=== PATIENT | female | born 1975 | race Caucasian/White ===

== ENCOUNTER 2021-06-08 14:36 | Emergency (ER) | payer OTHER, MEDICAID, SELFPAY ==
[2021-06-08 14:45] VITALS: BP 140/81; PULSE 97; RESP 22; TEMP 36.2; O2SAT 99
[2021-06-08 15:11] LABS: Add Manual Diff / Slide Review NO; Basophils Absolute Auto 0 /uL (0-100); Basophils Percent Auto 0.4 % (0-2); Eosinophils Absolute Auto 0 /uL (0-450); Eosinophils Percent Auto 0.4 % (2-4); Hematocrit 36.3 % (36-46); Hemoglobin 12.4 g/dL (12.0-16.0); Lymphocytes Absolute Auto 1100 /uL (1100-4500); Lymphocytes Percent Auto 16.4 % (25-40); Mean Corpuscular HGB Conc 34.1 % (30-36); Mean Corpuscular Hemoglobin 29.8 PG (26-34); Mean Corpuscular Volume 87.6 fL (80-100); Monocytes Absolute Auto 400 /uL (0-900); Monocytes Percent Auto 5.4 % (3-14); Neutrophils Absolute Auto 5300 /uL (1500-7000); Neutrophils Percent Auto 77.4 % (50-75); Platelet Count 271 X10^3/uL (150-400); Red Blood Cell Count 4.14 X10^6/uL (4.0-5.2); Red Cell Distribution Width 13.6 % (11.6-14.8); White Blood Cell Count 6.8 X10^3/uL (4.5-11.0)
[2021-06-08 15:20] LABS: Alanine Aminotransferase 22 IU/L (<35); Albumin 4.1 g/dL (3.5-5.0); Alkaline Phosphatase 100 U/L (38-126); Aspartate Aminotransferase 38 IU/L (14-36); BUN Creatinine Ratio 18.2 (6-22); Bilirubin Total 0.5 mg/dL (0.2-1.3); Blood Urea Nitrogen 12 mg/dL (7-17); Calcium 8.8 mg/dL (8.4-10.2); Carbon Dioxide 26 mmol/L (22-32); Chloride 104 mmol/L (98-107); Estimated Glomerular Filt Rate > 60.0 mL/min (>60); Globulin 4.1 g/dL (1.7-4.1); Glucose 100 mg/dL (70-100); HEMOLYSIS < 15 (0-50); Lipase 49 U/L (23-300); Potassium 3.6 mmol/L (3.4-5.1); Sodium 138 mmol/L (137-145); Total Protein 8.2 g/dL (6.3-8.2)
--- NOTE | 2021-06-08 17:36 | ED.ABDPAIN ---
HPI - Abdominal Pain General Chief Complaint: Abdominal Pain Stated Complaint: stabbing pain in stomach, hurts to breathe Time Seen by Provider: 06/08/21 17:12 Source: patient Mode of arrival: Ambulatory Limitations: no limitations History of Present Illness HPI narrative: This is a 46-year-old female comes in with complaint of abdominal in her right upper quadrant. Patient states it started earlier today. Patient denies fevers or chills no nausea or vomiting. She denies any back or flank pain. She did notice some dark urine earlier. She states no vaginal bleeding. No new discharge. No diarrhea constipation. Patient has not had similar symptoms in the past. She states that she was planting trees with another individual when her symptoms started. Movement does not seem to worsen her symptoms but flexing her body forward makes it more comfortable. Patient denies any medical issues. No prior surgeries. She has had an IUD in place for approximately 6 years. No known drug allergies she is a former smoker. Occasional alcohol. States that she did use some drugs recreationally last weekend but that does not her normal this includes methamphetamines and smoking heroin. Related Data Previous Rx's Medication Instructions Recorded cephalexin 500 mg capsule 500 mg PO BID 7 Days #14 cap 06/08/21 fluconazole 150 mg tablet 150 mg PO Q3D #2 tab 06/08/21 (Diflucan) Allergies Allergy/AdvReac Type Severity Reaction Status Date / Time No Known Drug Allergies Allergy Verified 06/08/21 14:48 Review of Systems Review of Systems ROS Unobtainable: All systems reviewed & are unremarkable except as noted in HPI and below Patient History Social History Smoking Status: Former smoker Smoking Status: Former smoker Exam Narrative Exam Narrative: GENERAL: Alert and oriented x three, mild distress. HEENT: Head normocephalic, atraumatic, EOMI, pupils reactive, face symmetric, moist mucous membranes NECK: Supple, full range of motion CARDIOVASCULAR: Regular rate and rhythm without murmurs, rubs or gallops. RESPIRATORY: Breath sounds equal bilaterally, no wheezes rales or rhonchi. ABDOMEN: Soft, moderate right upper and lower quadrant tenderness with some mild left lower quadrant tenderness. Normal bowel sounds all 4 quadrants. No guarding or rebound, rigidity, no mass : No CVA tenderness EXTREMITIES: Normal range of motion, no clubbing or edema. Neurovascularly intact NEUROLOGICAL: Cranial nerves II through XII grossly intact. Moving all extremities SKIN: Warm, dry, no petechiae, no rashes or lesions. Initial Vital Signs Initial Vital Signs: Vital Signs Temperature 97.2 F L 06/08/21 14:45 Pulse Rate 97 H 06/08/21 14:45 Respiratory Rate 22 06/08/21 14:45 Blood Pressure 140/81 06/08/21 14:45 Pulse Oximetry 99 06/08/21 14:45 Course Orders Ordered: Discontinued Medications Cephalexin HCl (Cephalexin 250 Mg Capsule) 500 mg PO NOW ONE Stop: 06/08/21 19:19 Last Admin: 06/08/21 19:23 Dose: 500 mg Documented by: CARMEN Sodium Chloride (Normal Saline 0.9%) 1,000 mls @ 1,000 mls/hr IV BOLUS ONE Stop: 06/08/21 18:44 Last Infusion: 06/08/21 19:21 Dose: 0 mls/hr Documented by: Admin: 06/08/21 17:59 Dose: 1,000 mls/hr Documented by: ELIEZER Ketorolac Tromethamine (Ketorolac 30 Mg/Ml Vial) 30 mg IV NOW ONE Stop: 06/08/21 17:46 Last Admin: 06/08/21 17:58 Dose: 30 mg Documented by: ELIEZER Reevaluation(s) Reevaluation #1: Patient has had some improvement. Reviewed findings and need for follow up. Vital Signs Vital signs: Vital Signs - 8 hr 06/08/21 14:45 06/08/21 18:36 Temperature 97.2 F L Pulse Rate 97 H 80 Respiratory Rate 22 Blood Pressure 140/81 138/88 Pulse Oximetry 99 99 MDM - Abdominal Pain Lab Data Result diagrams: 06/08/21 14:55 06/08/21 14:55 Labs: Lab Results 06/08/21 06/08/21 06/08/21 Range/Units 14:55 14:55 14:55 WBC 6.8 (4.5-11.0) X10^3/uL RBC 4.14 (4.0-5.2) X10^6/uL Hgb 12.4 (12.0-16.0) g/dL Hct 36.3 (36-46) % MCV 87.6 (80-100) fL MCH 29.8 (26-34) PG MCHC 34.1 (30-36) % RDW 13.6 (11.6-14.8) % Plt Count 271 (150-400) X10^3/uL Neut % (Auto) 77.4 H (50-75) % Lymph % (Auto) 16.4 L (25-40) % [place] % (Auto) 5.4 (3-14) % Eos % (Auto) 0.4 L (2-4) % Baso % (Auto) 0.4 (0-2) % Neut # (Auto) 5300 (6594-6532) /uL Lymph # (Auto) 1100 (2861-4131) /uL [place] # (Auto) 400 (0-900) /uL Eos # (Auto) 0 (0-450) /uL Baso # (Auto) 0 (0-100) /uL Sodium 138 (137-145) mmol/L Potassium 3.6 (3.4-5.1) mmol/L Chloride 104 (98-107) mmol/L Carbon Dioxide 26 (22-32) mmol/L BUN 12 (7-17) mg/dL Creatinine 0.66 (0.52-1.04) mg/dL Estimated GFR > 60.0 (>60) mL/min BUN/Creatinine Ratio 18.2 (6-22) Glucose 100 (70-100) mg/dL Calcium 8.8 (8.4-10.2) mg/dL Total Bilirubin 0.5 (0.2-1.3) mg/dL AST 38 H (14-36) IU/L ALT 22 (<35) IU/L Alkaline Phosphatase 100 (38-126) U/L Total Protein 8.2 (6.3-8.2) g/dL Albumin 4.1 (3.5-5.0) g/dL Globulin 4.1 (1.7-4.1) g/dL Albumin/Globulin Ratio 1.0 (1.0-2.8) Lipase 49 (23-300) U/L Serum , Qual Negative (Negative) Urine RBC (0-5/HPF) Urine WBC (0-5/HPF) Ur Squamous Epith Cells (0-5/HPF) Amorphous Sediment Urine Bacteria (None) Ur Culture Indicated? 06/08/21 Range/Units 19:00 WBC (4.5-11.0) X10^3/uL RBC (4.0-5.2) X10^6/uL Hgb (12.0-16.0) g/dL Hct (36-46) % MCV (80-100) fL MCH (26-34) PG MCHC (30-36) % RDW (11.6-14.8) % Plt Count (150-400) X10^3/uL Neut % (Auto) (50-75) % Lymph % (Auto) (25-40) % [place] % (Auto) (3-14) % Eos % (Auto) (2-4) % Baso % (Auto) (0-2) % Neut # (Auto) (3398-4793) /uL Lymph # (Auto) (3865-5471) /uL [place] # (Auto) (0-900) /uL Eos # (Auto) (0-450) /uL Baso # (Auto) (0-100) /uL Sodium (137-145) mmol/L Potassium (3.4-5.1) mmol/L Chloride (98-107) mmol/L Carbon Dioxide (22-32) mmol/L BUN (7-17) mg/dL Creatinine (0.52-1.04) mg/dL Estimated GFR (>60) mL/min BUN/Creatinine Ratio (6-22) Glucose (70-100) mg/dL Calcium (8.4-10.2) mg/dL Total Bilirubin (0.2-1.3) mg/dL AST (14-36) IU/L ALT (<35) IU/L Alkaline Phosphatase (38-126) U/L Total Protein (6.3-8.2) g/dL Albumin (3.5-5.0) g/dL Globulin (1.7-4.1) g/dL Albumin/Globulin Ratio (1.0-2.8) Lipase (23-300) U/L Serum , Qual (Negative) Urine RBC 1-5/hpf (0-5/HPF) Urine WBC 5-10/hpf H (0-5/HPF) Ur Squamous Epith Cells 1-5 /hpf (0-5/HPF) Amorphous Sediment 1+ Urine Bacteria Moderate (10-30) H (None) Ur Culture Indicated? Culture not indicate Point of care testing: Point of Care Testing Test Results Negative Urine Dip Bedside Urine Glucose Negative Bedside Urine Bilirubin - Negative Bedside Urine Ketone +++ 80 Urine Specific [place] 1.015 Bedside Urine Occult Blood + Bedside Urine pH 6 Bedside Urine Protein +/- 15 Bedside Urine Urobilinogen - Negative Bedside Urine Nitrite + Positive Bedside Urine Leukocytes + [address] scan - abdomen/pelvis: Radiologist's Impression: [place] [address] CT Scan Report Signed Patient: Marimar Thornton MR#: [id number] : 1975 Acct:[id number] Age/Sex: 46 / F Date of Service: 06/08/21 Loc: ED Accession Number: [id number] ?? Procedure: CT abdomen pelvis w con Ordering Provider: Genia Hernandez D.O. PROCEDURE:? CT ABDOMEN PELVIS W CON ? INDICATIONS:? right sided pain, RLQ > RUQ ? TECHNIQUE:? After the administration of intravenous contrast, axial sections acquired from the lung bases to the pubic symphysis.? Coronal and sagittal reformats were performed.? For radiation dose reduction, the following was used:? automated exposure control, adjustment of mA and/or kV according to patient size.? ? COMPARISON:? None. ? FINDINGS:? Image quality:? Excellent.? ? Lung bases:? Clear lung bases. Heart:? No significant findings. ? ABDOMEN: Liver:? Mild hepatic steatosis. Gallbladder:? Distended gallbladder with normal wall thickness and dependent 1.4 cm calcified stone. Biliary ducts:? Nondilated. Pancreas:? Normal. Spleen:? Normal size. Adrenal Glands:? No nodules. Kidneys and Ureters:? Normal enhancement.? No hydronephrosis or hydroureter.? No calcifications. ? Stomach and Bowel:? The stomach is decompressed.? Several proximal small bowel loops demonstrate slight circumferential wall thickening but without significant distension.? A few right lower quadrant small bowel loops demonstrate signs of stasis.? No discrete transition point.? Normal appendix.? There are some air-fluid levels in nondistended transverse colon.? Colon is otherwise normal. Peritoneum:? No abnormal intraperitoneal fluid.? There are mild generalized inflammatory changes and vascular congestion throughout the small bowel mesentery and within the mental fat throughout the peritoneal cavity.? No free air.? ? Ventral Wall: ? No hernias.? Abdominal Nodes:? No bulky adenopathy. Vessels:? Aorta and inferior vena cava are normal in size.? ? PELVIS: Pelvic Organs:? Retroverted uterus contains an IUD.? There is an left ovarian cyst.? Right ovary is indistinct. Bladder:? Unremarkable.? ? Pelvic Nodes: No enlarged lymph nodes.? Miscellaneous: No hernias are seen. ? ? ? Bones:? Degenerative disc change at L4-5. ? ? IMPRESSION:? ? 1. Generalized inflammatory changes affecting small bowel loops.? Findings are most suggestive of an enteritis.? No evidence of obstruction or distinct transition point. ? 2. Normal appendix. ? 3. Cholelithiasis without CT evidence of acute cholecystitis. ? 4. Mild hepatic steatosis. ? 5. Left ovarian cyst.? ? Dictated by: Analy Bolton M.D. on 06/08/2021 at 18:22 ? ? Approved by: Analy Bolton M.D. on 06/08/2021 at 18:31 MDM Narrative Medical decision making narrative: This is a 46-year-old female who comes emergency department complaint of abdominal pain particularly right upper quadrant. Patient has gallstones on imaging, no changes to labs. She has not had vomiting, she is afebrile with no infectious changes. Urine shows possible UTI I she has had UTIs in the past and would like to start antibiotics rather than wait for culture. She states she typically does get yeast infections in asked for prescription for fluconazole. Plan for follow-up with General surgery for recheck. She has some changes consistent with enteritis which may also be causing her abdominal pain. Return precautions discussed patient feels comfortable with this plan all questions answered. Discharge Plan Departure Patient Disposition: Home Clinical Impression: Enteritis, Cholelithiasis, UTI (urinary tract infection) Instructions: DI for Gallstones Activity Restrictions/Additional Instructions: Your urine shows signs of infection. Take antibiotics until gone. Your CT today shows inflammatory changes consistent with enteritis or inflammation. You do have gallstones on your imaging but no signs of infection to your gallbladder. These can cause trouble in potentially blockage although your labs are reassuring. Can follow-up with General surgery to evaluate for having your gallbladder removed in the future and referral is included below Take antibiotics until gone. Prescription sent to [facility] in [place]. Please return for fevers, worsening abdominal pain, persistent vomiting, black or bloody stools, passing out, difficulty with urination or other new or concerning symptoms. Prescriptions: New cephalexin 500 mg capsule 500 mg PO BID 7 Days Qty: 14 0RF fluconazole [Diflucan] 150 mg tablet 150 mg PO Q3D Qty: 2 0RF Referrals: Darcy Villaseñor MD [Physician] -
--- NOTE | 2021-06-08 17:45 | DI.CT.S_ITS ---
PROCEDURE: CT ABDOMEN PELVIS W CON INDICATIONS: right sided pain, RLQ > RUQ TECHNIQUE: After the administration of intravenous contrast, axial sections acquired from the lung bases to the pubic symphysis. Coronal and sagittal reformats were performed. For radiation dose reduction, the following was used: automated exposure control, adjustment of mA and/or kV according to patient size. COMPARISON: None. FINDINGS: Image quality: Excellent. Lung bases: Clear lung bases. Heart: No significant findings. ABDOMEN: Liver: Mild hepatic steatosis. Gallbladder: Distended gallbladder with normal wall thickness and dependent 1.4 cm calcified stone. Biliary ducts: Nondilated. Pancreas: Normal. Spleen: Normal size. Adrenal Glands: No nodules. Kidneys and Ureters: Normal enhancement. No hydronephrosis or hydroureter. No calcifications. Stomach and Bowel: The stomach is decompressed. Several proximal small bowel loops demonstrate slight circumferential wall thickening but without significant distension. A few right lower quadrant small bowel loops demonstrate signs of stasis. No discrete transition point. Normal appendix. There are some air-fluid levels in nondistended transverse colon. Colon is otherwise normal. Peritoneum: No abnormal intraperitoneal fluid. There are mild generalized inflammatory changes and vascular congestion throughout the small bowel mesentery and within the mental fat throughout the peritoneal cavity. No free air. Ventral Wall: No hernias. Abdominal Nodes: No bulky adenopathy. Vessels: Aorta and inferior vena cava are normal in size. PELVIS: Pelvic Organs: Retroverted uterus contains an IUD. There is an left ovarian cyst. Right ovary is indistinct. Bladder: Unremarkable. Pelvic Nodes: No enlarged lymph nodes. Miscellaneous: No hernias are seen. Bones: Degenerative disc change at L4-5. IMPRESSION: 1. Generalized inflammatory changes affecting small bowel loops. Findings are most suggestive of an enteritis. No evidence of obstruction or distinct transition point. 2. Normal appendix. 3. Cholelithiasis without CT evidence of acute cholecystitis. 4. Mild hepatic steatosis. 5. Left ovarian cyst. Dictated by: Analy Bolton M.D. on 06/08/2021 at 18:22 Approved by: Analy Bolton M.D. on 06/08/2021 at 18:31
[2021-06-08] MEDS: KETOROLAC 30 MG/ML VIAL IV (17:58)
[2021-06-08] MEDS: SODIUM CHLORIDE 0.9% 1,000 ML 1000 ML IV (17:59)
[2021-06-08 18:24] LABS: Pregnancy Test Serum,Qual Negative (Negative)
[2021-06-08 18:36] VITALS: BP 138/88; PULSE 80; O2SAT 99
[2021-06-08 19:23] LABS: Amorphous Sediment Urine 1+; Bacteria Urine Moderate (10-30); RBC Urine 1-5/HPF (0-5/HPF); Squamous Epithelial Cell Urine 1-5 /HPF (0-5/HPF); WBC Urine 5-10/HPF (0-5/HPF)
[2021-06-08] MEDS: cephALEXin 250 MG CAPSULE 500 MG PO (19:23)
== END 2021-06-08 19:28 | disposition home or self-care (01) ==
PROVIDERS: Emergency Provider Emergency Medicine
DX: K52.9 Noninfective gastroenteritis and colitis, unspecified (principal); K80.20 Calculus of gallbladder without cholecystitis without obstruction; N39.0 Urinary tract infection, site not specified; Z87.891 Personal history of nicotine dependence
CPT/HCPCS: 36415; 74177; 80053; 81003; 81015; 81025; 83690; 84703; 85025; 87077; 87086; 87186; 96361; 96374; 99284; J1885; Q9967

== ENCOUNTER 2025-01-05 17:48 | Emergency (ER) | payer OTHER, MEDICAID, SELFPAY ==
[2025-01-05] VITALS (7 sets, daily range): BP systolic 157–158; BP diastolic 92–94; PULSE 91–109; RESP 18; TEMP 36.5; O2SAT 98–99; BMI 21.2
--- NOTE | 2025-01-05 18:09 | PC.NURSE ---
patient reporting pain to knee but no obvious deformity, no redness, swelling to knee. patient also concerned regarding feet, valentina feet noted to have severe bunions and scabbing
--- NOTE | 2025-01-05 18:12 | ED_ITS ---
HPI - Extremity Problem <Dorothy Briggs PA-C - Last Filed: 01/05/25 19:07> General Chief complaint: Extremity Problem,Nontraumatic Stated complaint: R knee pn radiating up, fluid accumulation Time Seen by Provider: 01/05/25 17:58 Source: patient Mode of arrival: Ambulatory History of Present Illness HPI Narrative: Ms. Thornton is a pleasant 49-year-old female with a past history of methamphetamine use, prior right ACL injury treated non-surgically who presents to the emergency department for right knee pain x2 weeks, calf pain and swelling, concerned for nodules on her fingers and wounds on her toes. Patient states she discussed her calf pain and swelling with her primary care doctor who recommended that she come to the ER for rule out of a blood clot. States that she started developing pain and swelling in the posterior right calf that has since started to travel up the posterior leg to the back of the knee. She is also having pain of the knee which she states is a separate pain. Patient has a lso noticed small nodules on all of her distal joints of her fingers. She also has developed curvature of all of her toes and multiple small wounds on her toes, she is concerned that there might be parasites in these wounds and that it is due to walking in a [place]. She denies any fevers, chills, direct injury to the knee. States that she went to another ER and they did not help her at all with the wounds on her toes. PCP is [facility] in [place]. Related Data Previous Rx's ?Medication ?Instructions ?Recorded fluconazole 150 mg tablet 150 mg PO Q3D 2 doses #2 tab s 06/08/21 (Diflucan) Allergies Allergy/AdvReac Type Severity Reaction Status Date / Time No Known Drug Allergies Allergy Verified 01/05/25 18:07 Review of Systems <Dorothy Briggs PA-C - Last Filed: 01/05/25 19:07> Review of Systems ROS Unobtainable: All systems reviewed & are unremarkable except as noted in HPI and below Patient History <Dorothy Briggs PA-C - Last Filed: 01/05/25 19:07> Social History Smoking Status: Current every day smoker Smoking Status: Current every day smoker Exam <Dorothy Briggs PA-C - Last Filed: 01/05/25 19:07> Narrative Exam Narrative: GENERAL: 49 year old patient appears stated age. Well-developed patient, in no acute distress. Extremely tall. HEAD: Atraumatic. Normocephalic. EYES: No scleral icterus. No injection or drainage. ENT: Nose without bleeding, purulent drainage. Throat without erythema, tonsillar hypertrophy or exudate. Airway patent. NECK: Trachea midline. Cervical ROM intact. CARDIOVASCULAR: Regular rate RESPIRATORY: ?Nonlabored respirations. ?Speaking in clear, full sentences. EXTREMITIES: Patient has tenderness to palpation of the posterior right calf and right popliteal fossa. Subjective pain with flexion-extension of right knee in the anterior/medial region. No erythema, edema or warmth of the right knee. 2+ bilateral DP pulses. Patient does have quite significant flexion and lateral curvature of the toes, onychomycosis is present. She has multiple superficial abrasions on the toes, she does have a small superficial ulceration on the left 3rd toe. Patient has 2 small hard nodules on the DIP joints of all fingers in the dorsal aspect. NEURO: AOx3. ?Clear speech. ?Moves all 4 extremities appropriately. SKIN: Warm, dry, superficial abrasion/ulceration on toes described above. Initial Vital Signs Initial Vital Signs: Vital Signs Temperature 97.7 F 01/05/25 18:05 Pulse Rate 94 H 01/05/25 18:05 Respiratory Rate 18 01/05/25 18:05 Blood Pressure 158/94 H 01/05/25 18:05 Pulse Oximetry 98 01/05/25 18:05 Oxygen Delivery Method Room Air 01/05/25 18:05 <Aracely Cuenca MD - Last Filed: 01/05/25 20:01> Initial Vital Signs Initial Vital Signs: Vital Signs Temperature 97.7 F 01/05/25 18:05 Pulse Rate 94 H 01/05/25 18:05 Respiratory Rate 18 01/05/25 18:05 Blood Pressure 158/94 H 01/05/25 18:05 Pulse Oximetry 98 01/05/25 18:05 Oxygen Delivery Method Room Air 01/05/25 18:05 Course <Dorothy Briggs PA-C - Last Filed: 01/05/25 19:07> Orders Ordered: ED Orders 01/05/25 18:19 US periph venous low extrem rt Stat XR knee RT 3V Stat Discontinued Medications Acetaminophen (Acetaminophen 325 Mg Tablet) 975 mg PO NOW ONE Stop: 01/05/25 18:25 Last Admin: 01/05/25 18:38 Dose: 975 mg Documented By: SALLIE Acetaminophen (Acetaminophen 325 Mg Tablet) 325 mg PO NOW ONE Stop: 01/05/25 18:52 Last Admin: 01/05/25 19:14 Dose: Not Given Documented By: Bacitracin (Bacitracin Oint 0.9 Gm Pckt) 1 applic TOP NOW ONE Stop: 01/05/25 18:20 Last Admin: 01/05/25 18:39 Dose: 1 applic Documented By: SALLIE Ibuprofen (Ibuprofen 400 Mg Tablet) 400 mg PO NOW ONE Stop: 01/05/25 18:25 Last Admin: 01/05/25 18:38 Dose: 400 mg Documented By: SALLIE Vital Signs Vital signs: Vital Signs - 8 hr 01/05/25 18:05 Temperature 97.7 F Pulse Rate 94 H Respiratory Rate 18 Blood Pressure 158/94 H Pulse Oximetry 98 Oxygen Delivery Method Room Air <Aracely Cuenca MD - Last Filed: 01/05/25 20:01> Orders Ordered: ED Orders 01/05/25 18:19 periph venous low extrem rt Stat XR knee RT 3V Stat Discontinued Medications Acetaminophen (Acetaminophen 325 Mg Tablet) 975 mg PO NOW ONE Stop: 01/05/25 18:25 Last Admin: 01/05/25 18:38 Dose: 975 mg Documented By: SALLIE Acetaminophen (Acetaminophen 325 Mg Tablet) 325 mg PO NOW ONE Stop: 01/05/25 18:52 Last Admin: 01/05/25 19:14 Dose: Not Given Documented By: Bacitracin (Bacitracin Oint 0.9 Gm Pckt) 1 applic TOP NOW ONE Stop: 01/05/25 18:20 Last Admin: 01/05/25 18:39 Dose: 1 applic Documented By: SALLIE Ibuprofen (Ibuprofen 400 Mg Tablet) 400 mg PO NOW ONE Stop: 01/05/25 18:25 Last Admin: 01/05/25 18:38 Dose: 400 mg Documented By: SALLIE Vital Signs Vital signs: Vital Signs - 8 hr 01/05/25 18:05 Temperature 97.7 F Pulse Rate 94 H Respiratory Rate 18 Blood Pressure 158/94 H Pulse Oximetry 98 Oxygen Delivery Method Room Air MDM - Extremity (Nontraumatic) <Dorothy Briggs PA-C - Last Filed: 01/05/25 19:07> Medical Records Attestation: I reviewed the patient's medical records. Medical records narrative: ER visit for cholelithiasis 06/08/2021 Imaging Data Right Knee X-Ray: Radiologist's Impression: PROCEDURE: XR KNEE RT 3V INDICATIONS: right knee pain; no trauma TECHNIQUE: 3 views of the knee were acquired. COMPARISON: None. FINDINGS: Moderate degenerative change of the right knee with joint space narrowing in the medial tibiofemoral compartment. No effusion. No fracture or dislocation. IMPRESSION: Osteoarthritis. Dictated by: Giuliano Tripathi M.D. on 01/05/2025 at 18:47 Approved by: Giuliano Tripathi M.D. on 01/05/2025 at 18:48 MDM Narrative Medical decision making narrative: 49-year-old female with a past history of methamphetamine use, prior right ACL injury who presents to the emergency department for right knee pain x2 weeks, calf pain and swelling, concerned for nodules on her fingers and wounds on her toes. Differential diagnosis includes but isn't limited to osteoarthritis, rheumatoid arthritis, psoriatic arthritis, DVT, SVT, calf strain, knee effusion, etc. On exam the patient is in no acute distress, nontoxic appearing, vital signs appropriate except for mildly elevated heart rate. Patient has multiple concer ns, primarily she was sent here by PCP for concern of possible blood clot given patient's subjective complaints of right calf pain, swelling - she does not have history of VTE, no recent surgery or prolonged travel, she does have Mirena IUD no oral hormones. She is also having knee pain with flexion/extension, and weight-bearing. Patient also has small nodules on the DIP joints of her fingers, curvature of her toes that she says is new, and concern for wounds on her toes. Overall patient is fingers and toes are concerning for possibly an underlying arthritis that can be further evaluated outpatient. She is not having any erythema or increased warmth or fevers concerning for a septic joint. We will treat pain with ibuprofen and acetaminophen, apply bacitracin to wounds, x-ray right knee, RLE US. Patient is feet wounds were cleansed and bacitracin and dressings applied by nursing staff. Right knee x-ray reveals osteoarthritis, moderate degenerative changes of the right knee with joint space narrowing in the medial tibiofemoral compartment, this correlates with the location of the patient's pain. No effusion fractures or dislocations. Discussed rice therapy with the patient, ibuprofen, acetaminophen, Hibiclens wash for her feet daily application of antibiotic ointment. Discussed importance of follow up with her PCP regarding arthritic changes of her fingers and toes. Discussed strict ER return precautions, wound care, all questions were answered. Due to shift change, patient's RLE US results will be reviewed with her by the nighttime physician, Dr. Cuenca. Patient verbalized understanding of all information is happy with the plan. She is stable for discharge home pending right lower extremity venous ultrasound. <Aracely Cuenca MD - Last Filed: 01/05/25 20:01> [facility] Narrative Medical decision making narrative: 49-year-old female with a past history of methamphetamine use, prior right ACL injury who presents to the emergency department for right knee pain x2 weeks, calf pain and swelling, concerned for nodules on her fingers and wounds on her toes. Differential diagnosis includes but isn't limited to osteoarthritis, rheumatoid arthritis, psoriatic arthritis, DVT, SVT, calf strain, knee effusion, etc. On exam the patient is in no acute distress, nontoxic appearing, vital signs appropriate except for mildly elevated heart rate. Patient has multiple concerns, primarily she was sent here by PCP for concern of possible blood clot given patient's subjective complaints of right calf pain, swelling - she does not have history of VTE, no recent surgery or prolonged travel, she does have Mirena IUD no oral hormones. She is also having knee pain with flexion/extension, and weight-bearing. Patient also has small nodules on the DIP joints of her fingers, curvature of her toes that she says is new, and concern for wounds on her toes. Overall patient is fingers and toes are concerning for possibly an underlying arthritis that can be further evaluated outpatient. She is not having any erythema or increased warmth or fevers concerning for a septic joint. We will treat pain with ibuprofen and acetaminophen, apply bacitracin to wounds, x-ray right knee, RLE US. Patient is feet wounds were cleansed and bacitracin and dressings applied by [facility] staff. Right knee x-ray reveals osteoarthritis, moderate degenerative changes of the right knee with joint space narrowing in the medial tibiofemoral compartment, this correlates with the location of the patient's pain. No effusion fractures or dislocations. Discussed rice therapy with the patient, ibuprofen, acetaminophen, Hibiclens wash for her feet daily application of antibiotic ointment. Discussed importance of follow up with her PCP regarding arthritic changes of her fingers and toes. Discussed strict ER return precautions, wound care, all questions were answered. Due to shift change, patient's RLE US results will be reviewed with her by the nighttime physician, Dr. Cuenca. Patient verbalized understanding of all information is happy with the plan. She is stable for disc harge home pending right lower extremity venous ultrasound. Dr Cuenca Ultrasound is unremarkable. Patient is discharged home with plan as outlined by TITI Briggs Discharge Plan Departure Patient Disposition: Home Clinical Impression: Pain of right calf, Nodule of finger of both hands Knee pain, right Qualifiers: Chronicity: acute Qualified Code(s): M25.561 - Pain in right knee Skin ulcer of foot including toes Qualifiers: Laterality: unspecified laterality Non-pressure ulcer stage: limited to breakdown of skin Qualified Code(s): L97.501 - Non-pressure chronic ulcer of other part of unspecified foot limited to breakdown of skin Osteoarthritis of right knee Qualifiers: Osteoarthritis type: unspecified Qualified Code(s): M17.11 - Unilateral primary osteoarthritis, right knee Instructions: DI for Osteoarthritis, Skin Wound Activity Restrictions/Additional Instructions: Dear Ms. Thornton, Thank you for coming to the emergency department. Today you were evaluated for right calf pain, right knee pain, nodules on your fingers and wounds on your toes. As we discussed her x-ray did reveal osteoarthritis in your right knee and I suspect her also dealing with arthritis in your toes and your fingers. Please follow up with your primary care doctor for further management, you may benefit from seeing an orthopedic doctor or a rn intake. The ultrasound did NOT show a blood clot in your leg For your knee pain: Please use RICE therapy for your pain in addition to ibuprofen/acetaminophen. Rest the painful area. Ice the area of pain/swelling for at least 15 minutes, 4x a day. Compress the area of swelling using a brace, wrap, or splint if applied. Elevate the painful or swollen extremity by supporting it above the level of the heart with pillows when sitting or laying. Please take Ibuprofen (Motrin/Advil) or Acetaminophen (Tylenol) for pain. These are available over the counter. You may take Ibuprofen 600 mg every 8 hours with food for pain. You may also take Acetaminophen 650 mg every 4-6 hours for pain. Do not exceed 3000 mg of Tylenol a day as this can cause liver damage. Do not drink alcohol with either of these medications. For the wounds on your feet: Please use the Hibiclens wash that you were provided with at least once a day. Please keep the feet as clean as possible and avoid wearing footwear that rubbed on the wounds. Please apply antibiotic ointment such as triple antibiotic ointment or bacitracin twice rojas to open wounds, and then keep them covered with a bandage. Please return to the emergency department if you develop any new or worsening symptoms, fevers, redness spreading up the leg or any other concerns. Please follow up with your primary care doctor within the next 2-3 days for ER follow-up. (If you do not have a PCP you can call [phone]. ?to schedule an appointment with an [facility] Primary Care Provider) IF YOU DEVELOP ANY NEW OR WORSENING SYMPTOMS, RETURN TO THE ER! Please read the attached instructions, they highlight more specific treatments and interventions for you at home. Thank you for letting me participate in your care, Dorothy Briggs PA-C Prescriptions: No Action fluconazole [Diflucan] 150 mg tablet 150 mg PO Q3D Qty: 2 0RF Stand Alone Forms: Patient Portal/API ED Sign-out <Aracely Cuenca MD - Last Filed: 01/05/25 20:01> [facility] Attestation: I was immediately available in the department for consultation throughout this patient's visit. Ultrasound was reviewed. Aracely Cuenca MD
--- NOTE | 2025-01-05 18:19 | DI.US.S_ITS ---
PROCEDURE: US PERIPH VENOUS LOW EXTREM RT INDICATIONS: RLE calf pain ascending posterior leg, concern dvt TECHNIQUE: Real-time imaging, as well as color and pulse Doppler interrogation, were performed of the lower extremity deep veins from the inguinal ligament to the popliteal fossa, with documentation of the visualized calf veins. COMPARISON: None. FINDINGS: The common femoral, femoral, popliteal, and the visualized calf veins are normally compressible, and free of intraluminal thrombus. Color and pulse Doppler demonstrate normal phasic intraluminal flow. There is normal augmentation response to distal compression maneuver. IMPRESSION: No findings of lower extremity deep venous thrombosis. Dictated by: Shantel Chang M.D. on 01/05/2025 at 19:37 Approved by: Shantel Chang M.D. on 01/05/2025 at 19:37
--- NOTE | 2025-01-05 18:19 | DI.RAD.S_ITS ---
PROCEDURE: XR KNEE RT 3V INDICATIONS: right knee pain; no trauma TECHNIQUE: 3 views of the knee were acquired. COMPARISON: None. FINDINGS: Moderate degenerative change of the right knee with joint space narrowing in the medial tibiofemoral compartment. No effusion. No fracture or dislocation. IMPRESSION: Osteoarthritis. Dictated by: Giuliano Tripathi M.D. on 01/05/2025 at 18:47 Approved by: Giuliano Tripathi M.D. on 01/05/2025 at 18:48
[2025-01-05] MEDS: IBUPROFEN 400 MG TABLET PO (18:38)
[2025-01-05] MEDS: ACETAMINOPHEN 325 MG TABLET 975 MG PO (18:38)
[2025-01-05] MEDS: BACITRACIN OINT 0.9 GM PCKT 1 APPLIC TOP (18:39)
--- NOTE | 2025-01-05 19:05 | PC.NURSE ---
patient feet cleaned and hibiclens provided. abx ointment applied and wounds dressed with passed dressings. new socks provided
== END 2025-01-05 20:43 | disposition home or self-care (01) ==
PROVIDERS: Emergency Provider Physician Assistant
DX: L97.501 Non-pressure chronic ulcer of other part of unspecified foot limited to breakdown of skin (principal); M17.11 Unilateral primary osteoarthritis, right knee; M79.661 Pain in right lower leg; M25.561 Pain in right knee; R22.33 Localized swelling, mass and lump, upper limb, bilateral
CPT/HCPCS: 73562; 93971; 99283